=== PATIENT | male | born 1990 | race African-American/Black ===

== ENCOUNTER 2019-07-25 10:27 | Emergency (ER) | payer SELFPAY ==
[~2019-07-25] VITALS: Ht 180.3 cm; Wt 90.7 kg
[~2019-07-25 10:27] MED LIST: ADDERALL 15 MG15 MG ORAL; ADDERALL XR 2525 MG ORAL; BACITRACIN1 APPLIC TOPIC; CYCLOBENZAPRINE10 MG ORAL; IBUPROFEN800 MG ORAL; PEPCID20 MG PO
[2019-07-25] MEDS ORDERED: VYVANSE30 MG ORAL (10:38)
[2019-07-25 11:00] VITALS: BP 134/82
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
--- NOTE | 2019-07-25 12:10 | NUR ---
ED Nurse Note: pt is stable and will be d/c home with f/u instructions to see his PCP with any conerns or questions. pt is able to ambulate and is accompanied by spouse and family, pt educated on home remedies for pain such as heat and various stretches. pt understands to return to ED if his symptoms worsen or for any other concerns.
[2019-07-25] MEDS ORDERED: IBUPROFEN600 MG ORAL (12:28)
[2019-07-25 13:19] VITALS: BP 124/80
== END 2019-07-25 12:32 | disposition home or self-care (01) ==
LOC: EMR 11:32
DX: M54.5 Low back pain (principal)
CPT/HCPCS: 99282